=== PATIENT | female | born 2000 | race Caucasian/White ===

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

== ENCOUNTER → 2021-07-20 | Outpatient (CLI) | payer BC, MEDICAID, OTHER ==
[~2021-07-20] MED LIST: AMOX-358 PO; MEDR150D8 IM
== END ==
LOC: LABNPT 15:48
PROVIDERS: ATTEND Nurse Practitioner Women's Health
DX: Z34.02 Encounter for supervision of normal first pregnancy, second trimester (principal); Z3A.00 Weeks of gestation of pregnancy not specified
CPT/HCPCS: 82105

== ENCOUNTER → 2021-08-10 | Outpatient (CLI) | payer BC ==
--- NOTE | 2021-08-10 13:06 | Diagnostic Imaging Report ---
INDICATION: Supervision during normal . CORRELATION: None FINDINGS: Single viable intrauterine currently in a cephalic presentation. Amount of amniotic fluid is normal. Placenta anterior and without evidence for previa. Visualized anatomical structures including the kidneys, bladder, stomach, intracranial structures, four-chamber heart, three-vessel cord and insertion site, spine and extremities appearing unremarkable. Maternal adnexa not visualized. Cervical length 4.6 cm. Biometrical measurements are as follows: Biparietal 4.85 cm, age 20 weeks 5 days. Head circumference 18.59 cm, age 21 weeks 0 days. Abdominal circumference 14.90 cm, age 20 weeks 2 days. Femur length 3.72 cm, age 21 weeks 6 days. Sonographic estimate age: 21 weeks 0 days. Sonographic estimated date of delivery: 12/21/2021. Estimated Weight: 387 gm (+/- 57 gm). LMP percentile: 65%. heart rate: 152 beats per minute. number: 1 of 1. IMPRESSION: 1. Single viable intrauterine , currently in a Presentation presentation. 2. Sonographic estimated age 21 weeks 0 days, with an estimated date of delivery 12/21/2021. 3. No sonographic abnormalities demonstrated at this time. Dictated by: Dictated on workstation # [id number]
== END ==
LOC: RAD 12:00
PROVIDERS: ATTEND Nurse Practitioner Women's Health
DX: Z34.02 Encounter for supervision of normal first pregnancy, second trimester (principal); Z3A.21 21 weeks gestation of pregnancy
CPT/HCPCS: 76805

== ENCOUNTER 2021-12-25 18:51 | Inpatient (IN) | payer BC ==
[~2021-12-25] VITALS: Ht 162.6 cm; Wt 81.0 kg
[2021-12-25] MEDS ORDERED: NS IV 1000 ML 1,000 ML IV SCH (19:45)
[2021-12-25] MEDS ORDERED: MINERAL OIL 30 ML UDC TOP PRN (19:45)
[2021-12-25] MEDS ORDERED: TERBUTALINE INJ 1 MG/ML (BRETHINE) AMP SC PRN (19:45)
[2021-12-25] MEDS: D5 LR IV SOLUTION 1,000 ML IV SCH (20:00)
[2021-12-25 20:12] VITALS: BP 133/79
[2021-12-25 20:30] LABS: BASOPHILS % (AUTO) 0 % (0-10); EOSINOPHILS # (AUTO) 0.5 10^3/uL (0.0-0.3); EOSINOPHILS % (AUTO) 5 % (0-10); HEMATOCRIT 28 % (35-52); HEMOGLOBIN 9.7 g/dL (11.5-16.0); LYMPHOCYTES # (AUTO) 1.8 10^3/uL (1.0-4.0); LYMPHOCYTES % (AUTO) 19 % (12-44); MEAN CORPUSCULAR HEMOGLOBIN 29 pg (25-34); MEAN CORPUSCULAR HGB CONC 35 g/dL (32-36); MEAN CORPUSCULAR VOLUME 84 fL (80-99); MEAN PLATELET VOLUME 11.6 fL (9.0-12.2); MONOCYTES # (AUTO) 0.6 10^3/uL (0.0-1.0); MONOCYTES % (AUTO) 6 % (0-12); NEUTROPHILS # (AUTO) 6.4 10^3/uL (1.8-7.8); NEUTROPHILS % (AUTO) 68 % (42-75); PLATELET COUNT 175 10^3/uL (130-400); WHITE BLOOD COUNT 9.4 10^3/uL (4.3-11.0)
[2021-12-25 22:10] VITALS: BP 131/79
[2021-12-25 22:40] VITALS: BP 127/72
[2021-12-25 23:10] VITALS: BP 127/76
[2021-12-25 23:40] VITALS: BP 122/69
[2021-12-26] VITALS (65 sets, daily range): BP systolic 111–140; BP diastolic 63–92
[2021-12-26] MEDS ORDERED: AMPICILLIN FOR IV USE 2,000 MG in NS (IVPB) 50 ML IV ONE ×2
[2021-12-26] MEDS: CATHETER FLUSH 10 ML SYR IV SCH ×2 (03:46→05:57)
[2021-12-26] MEDS: AMPICILLIN FOR IV USE 1,000 MG in NS (IVPB) 50 ML IV SCH ×2 (04:00→08:20)
[2021-12-26] MEDS: D5 LR IV SOLUTION 1,000 ML IV SCH ×2 (04:00→11:08)
--- NOTE | 2021-12-26 07:25 | History & Physical-OB ---
OB - Chief Complaint & HPI Date/Time Date of Admission: Date of Admission: Dec 25, 2021 at 18:51 Date seen by a Provider: Dec 26, 2021 Time Seen by a Provider: 07:15 Chief Complaint/History OB-Reason for Admission/Chief: Induction of Labor Hx : 1 Hx Para: 0 Expected Date of Delivery: Dec 24, 2021 Gestational Age in Weeks: 40 Gestational Age in Days: 2 Indication for induction: post dates Admission Nurse Assessment Rev: Yes History of Labs A pos Antibody neg RI RPR NR HBsAg NR HIV NR GC neg GBS pos Allergies and Home Medications Allergies Coded Allergies: No Known Drug Allergies (Unverified , 12/09/18) Patient Home Medication List Home Medication List Reviewed: Yes Amoxicillin/Potassium Clav (Augmentin 875-125 Tablet) 1 Each Tablet, 1 TAB PO Q12H, (Reported) Entered as Reported by: GAMALIEL MOTA on 12/09/18 0956 Medroxyprogesterone Acetate (Depo-Provera) 150 Mg/1 Ml Syringe, 150 MG IM EVERY 3 MONTHS, (Reported) Entered as Reported by: GAMALIEL MOTA on 12/09/18 0955 OB - History Hx of Present Care: Yes Ultrasounds: Normal mid trimester US Obstetrical Complications: None Medical Complications: None Patient Past Medical History na Immunizations Influenza Vaccine Up-to-Date: No; Not Current Hepatitis B: Yes OB - Admission Exam Physical Exam Vitals: Vital Signs 12/26/21 12/26/21 04:00 06:40 Temp 36.9 Pulse 71 Resp 18 B/P (MAP) 125/76 (92) O2 Delivery Room Air HEENT: NCAT Heart: Rhythm Normal Lungs: Clear Abdomen: Gravid Extremities: Normal Reflexes: Normal Cervical Dilatation: 1cm Effacement: 75% Station: -1 Membranes: Intact Heart Rate: 130's Accelerations: Accelerations Present Decelerations: No Decelerations Short Term Variability: Present Wrapper Operator Variability: Average (6-25) Contractions on Admission: 6-10 Minutes Apart Intensity: Mild Labs Laboratory Tests Test 12/25/21 19:50 Range/Units White Blood Count 9.4 4.3-11.0 10^3/uL Red Blood Count 3.33 L 3.80-5.11 10^6/uL Hemoglobin 9.7 L 11.5-16.0 g/dL Hematocrit 28 L 35-52 % Mean Corpuscular Volume 84 80-99 fL Mean Corpuscular Hemoglobin 29 25-34 pg Mean Corpuscular Hemoglobin Concent 35 32-36 g/dL Red Cell Distribution Width 13.1 10.0-14.5 % Platelet Count 175 130-400 10^3/uL Mean Platelet Volume 11.6 9.0-12.2 fL Immature Granulocyte % (Auto) 1 % Neutrophils (%) (Auto) 68 42-75 % Lymphocytes (%) (Auto) 19 12-44 % Monocytes (%) (Auto) 6 0-12 % Eosinophils (%) (Auto) 5 0-10 % Basophils (%) (Auto) 0 0-10 % Neutrophils # (Auto) 6.4 1.8-7.8 10^3/uL Lymphocytes # (Auto) 1.8 1.0-4.0 10^3/uL Monocytes # (Auto) 0.6 0.0-1.0 10^3/uL Eosinophils # (Auto) 0.5 H 0.0-0.3 10^3/uL Basophils # (Auto) 0.0 0.0-0.1 10^3/uL Immature Granulocyte # (Auto) 0.1 0.0-0.1 10^3/uL OB - Assessment/Plan/Diagnosis Assessment Assessment: induction of labor Admission Dx 21 y o @ 40.2 Post dates GBS pos Admission Status: Inpatient Order (span 2 midnights) Reason for Inpatient Admission: IOL at 40 weeks Plan Plan: Induction Induction Method: per Misoprostol Protocol Other Plan SROM occurred this AM. Pitocin augmentation to be started. SIVA CORTEZ DO Dec 26, 2021 07:25
[2021-12-26] MEDS ORDERED: ONDANSETRON 4 MG/2 ML (SDV) Z0FRAN ONE (07:26)
[2021-12-26] MEDS ORDERED: ONDANSETRON 4 MG/2 ML (SDV) Z0FRAN IVP PRN ×2 (07:30→12:30)
[2021-12-26] MEDS ORDERED: OXYTOCIN PRE-MIX DRIP 500 ML IV SCH ×2 (08:00→12:30)
[2021-12-26] MEDS ORDERED: fentaNYL 2 mcg/ml BUPIVA 0.125 100 ML ONE (08:34)
[2021-12-26] MEDS ORDERED: LACTATED RINGERS 1,000 ML IV ONE ×3 (08:34→14:30)
[2021-12-26] MEDS ORDERED: fentaNYL INJ 100 MCG/2 ML AMP ONE (08:51)
[2021-12-26] MEDS ORDERED: BUPIVACAINE 0.25% 30 ML (SENSORCAINE) VIAL ONE (08:51)
[2021-12-26] MEDS ORDERED: METOCLOPRAMIDE INJ 10 MG/2 ML (REGLAN) ONE (12:09)
[2021-12-26] MEDS ORDERED: CITRIC ACID/SOB CIT (BICITRA) 30 ML UDC ONE (12:09)
[2021-12-26] MEDS ORDERED: ceFAZolin INJECTION 2,000 MG ONE (12:09)
[2021-12-26] MEDS ORDERED: FAMOTIDINE 20MG/2ML IV (PEPCID) ONE (12:10)
[2021-12-26] MEDS ORDERED: NS (IVPB) 0 ML ONE (12:12)
--- NOTE | 2021-12-26 12:17 | Progress Note ---
Standard Progress Note Progress Notes/Assess & Plan Date Seen by a Provider: Dec 26, 2021 Time Seen by a Provider: 12:10 Progress/Assessment & Plan After epidural was placed, exam better tolerated. palpated in breech presentation. Discussed with patient immediate need to proceed to . Risk involved in vaginal breech vs. reviewed. SIVA CORTEZ DO Dec 26, 2021 12:17
--- NOTE | 2021-12-26 12:20 | Discharge Inst-Women's Service ---
Discharge Inst-Women's Serv Depart Medication/Instructions New, Converted or Re-Newed RX: Transmitted to Pharmacy Problems Reviewed?: Yes Consults/Follow Up Additional Follow Up: Yes Orders/Referrals Dr. Bo in 7-10 days and in 6 weeks Activity Activity: Activity as Tolerated Driving Instructions: No Driving for 1 Week NO SMOKING: NO SMOKING Nothing Inside Vagina: No Douching, No Rawlins, No Tampons Diet Discharge Diet: No Restrictions Symptoms to Report to : Bleeding Excessive, Pain Increased, Fever Over 101 Degrees F, Vaginal Bleeding Increase, Questions/Concerns For Any Problems or Questions: Contact Your Physician Skin/Wound Care Infection Signs and Symptoms: Increased Redness, Foul Odor of Wound, Increased Drainage, Skin Itchy or Has a Rash, Increased Swelling, Temperature Above 101 F Operative Area Clean and Dry: Keep Incision Clean/Dry Stitches/Magaly/Dermabond: Dermabond, Care of Stitches Bathing Instructions: SIVA Gonzalez DO Dec 26, 2021 12:20
[2021-12-26] MEDS ORDERED: DOCU100C37 PO (12:22)
[2021-12-26] MEDS ORDERED: IBUP-844 PO (12:22)
[2021-12-26] MEDS ORDERED: ACHD5005 PO (12:22)
[2021-12-26] MEDS ORDERED: BUPIVACAINE 0.5% 30 ML (SENSORCAINE) VIAL ONE (12:29)
[2021-12-26] MEDS ORDERED: OXYTOCIN PRE-MIX DRIP 1,000 ML IV ONE (12:29)
[2021-12-26] MEDS ORDERED: NALOXONE 0.4 MG/ML 1 ML (NARCAN) VIAL IV PRN ×2 (12:30→14:30)
[2021-12-26] MEDS ORDERED: MEASLES,MUMPS,RUBELLA 1 EA INJ SC SCH (12:30)
[2021-12-26] MEDS ORDERED: TETANUS,DIPTH,PERTUSS P/F (BOOSTRIX) 0.5 ML VIAL IM SCH (12:30)
[2021-12-26] MEDS: KETOROLAC 30 MG/ML VIAL IV SCH ×2 (13:00→18:32)
[2021-12-26] MEDS ORDERED: KETOROLAC 30 MG/ML VIAL ONE (13:03)
[2021-12-26] MEDS ORDERED: CATHETER FLUSH 10 ML SYR IV SCH (14:00)
[2021-12-26] MEDS ORDERED: CITRIC ACID/SOB CIT (BICITRA) 30 ML UDC PO ONE (14:15)
[2021-12-26] MEDS ORDERED: FAMOTIDINE 20MG/2ML IV (PEPCID) IV ONE (14:15)
[2021-12-26] MEDS ORDERED: ceFAZolin INJECTION 2,000 MG in NS (IVPB) 50 ML IV ONE (14:15)
[2021-12-26] MEDS ORDERED: METOCLOPRAMIDE INJ 10 MG/2 ML (REGLAN) IV ONE (14:15)
[2021-12-26] MEDS ORDERED: LACTATED RINGERS 1,000 ML IV PRN (14:15)
[2021-12-26] MEDS ORDERED: CATHETER FLUSH 10 ML SYR IV PRN (14:30)
[2021-12-26] MEDS ORDERED: ONDANSETRON 4 MG/2 ML (SDV) Z0FRAN IV PRN (14:30)
[2021-12-26] MEDS ORDERED: fentaNYL 2 mcg/ml BUPIVA 0.125 100 ML IV SCH (14:30)
[2021-12-26] MEDS ORDERED: diphenhydrAMINE 50 MG/ML INJ (BENADRYL) IV PRN (14:30)
[2021-12-26] MEDS: METOCLOPRAMIDE 10 MG (REGLAN) TAB PO SCH (18:32)
[2021-12-26] MEDS: DOCUSATE SODIUM 100 MG (COLACE) CAP PO SCH (20:37)
--- NOTE | 2021-12-26 21:57 | OPERATIVE REPORT ---
DATE OF SERVICE: PREOPERATIVE DIAGNOSES: 1. A 21-year-old G1, P0 at 40 weeks and 2 days gestation. 2. Po breech presentation. POSTOPERATIVE DIAGNOSES: 1. A 21-year-old G1, P0 at 40 weeks and 2 days gestation. 2. Po breech presentation. PROCEDURE: Primary low transverse section. SURGEON: Thony Bo DO ANESTHESIA: Epidural, which had been bolused. ESTIMATED BLOOD LOSS: 500 mL. URINE OUTPUT: 900 mL clear at the end of procedure. FLUIDS: 1000 mL lactated Ringer's solution. FINDINGS: A live female infant weighing 7 pounds 1 ounce with Apgars of 8 and 8. Grossly normal appearing uterus, bilateral fallopian tubes and ovaries. SPECIMEN SENT: Placenta. INDICATIONS FOR PROCEDURE: This 21-year-old female who is brought in for induction of labor postdates last week. Examination in the office was found to be in the vertex presentation; however, this morning after receiving a cervical ripening overnight she was found to be in the po breech presentation on examination, buttocks was palpated. I discussed with the patient proceeding with primary . The patient had already had rupture of membranes with meconium-stained fluid. Risks of the procedure were discussed with the patient in detail and after all of her questions were answered, consent was obtained in the preoperative area and the patient was taken to the operating room. OPERATIVE REPORT IN DETAIL: Once in the operating room, epidural analgesia was bolused and found to be adequate. She was placed in the supine position with leftward tilt, prepped and draped in normal sterile fashion. Timeout was performed and anesthesia was tested. I then make a Pfannenstiel skin incision with knife and carried down to underlying fascia using Bovie cautery. The fascial incision extended laterally using Bovie cautery. Superior aspect of fascial incision was then grasped with Bryan clamps, tented up and dissected off the underlying rectus muscles. The inferior aspect of fascial incision was then grasped with Bryan clamps, tented up and dissected off the underlying rectus muscles. The rectus muscle dissected down the midline using sharp dissection, which exposed the peritoneum, which I entered bluntly and extended using blunt traction. Montez ring retractor was placed in the peritoneal incision, which offers excellent lateral sidewall retraction. I identified the lower uterine segment, which was found to be thinned out and make a low transverse incision to the vesicouterine peritoneum and bluntly dissected this off the lower uterine segment, creating a bladder flap. I then proceeded with my myotomy until membranes are visualized, at which point I extended the uterine incision laterally and superiorly using bandage scissors. The infant was found in the breech presentation. It was a po breech. The buttocks were delivered up through the incision up to the upper torso where the legs are completely delivered. The fetus was then rotated to be facing downward and the arms were delivered by sweeping them across the chest and the 's body was elevated and the 's head was delivered with flexion through the incision. At this point, nares and oropharynx were bulb suctioned. Cord was doubly clamped and cut, and the infant was handed off to waiting nurses in attendance. Cord blood was collected, 3-vessel cord with intact placenta was delivered spontaneously, thereafter IV Pitocin was initiated to facilitate uterine contraction. Uterine fundus became firm with uterine massage. The uterus was then exteriorized and cleared of all endometrial clots and debris. I then proceeded with closing the uterine incision using 0 Vicryl suture in a running locked fashion. There is an extension of the uterine incision down into the cervix, which was closed using 0 Vicryl suture in running locked fashion. Second layer of imbricating 0 Monocryl is placed in an imbricating fashion and excellent hemostasis was noted after doing this. I then placed the uterus back within the pelvis and copiously irrigated the pelvis using normal saline. Once again, there was no active bleeding noted from any of my dissection planes. I placed Interceed antiadhesive over my low transverse incision. I removed the Montez ring retractor and then proceeded with closing the peritoneum using 3-0 Vicryl suture in a running fashion. Rectus muscles were reapproximated using 3-0 Vicryl suture in interrupted fashion. The fascia was reapproximated using 0 Vicryl suture in a running fashion. The skin reapproximated using 4-0 Monocryl in a running subcuticular. Dermabond was applied to incision and sterile dressing with adhesive white tape. The patient tolerated the procedure well and sent to recovery area in stable condition. Lap and sponge counts were correct at the end of the procedure. Instrument counts correct as well. Two grams of Ancef were given preoperatively for infection prophylaxis. Job ID: [id number] DocumentID: [id number] Dictated Date: 12/26/2021 13:21:27 Director Of Coding Date: 12/26/2021 21:56:45 Dictated By: DO AUDREY EMMANUEL
[2021-12-27] MEDS: KETOROLAC 30 MG/ML VIAL IV SCH ×2 (00:23→06:00)
[2021-12-27] MEDS: METOCLOPRAMIDE 10 MG (REGLAN) TAB PO SCH ×4 (00:23→18:02)
[2021-12-27 00:42] VITALS: BP 118/72
[2021-12-27 05:39] LABS: BASOPHILS % (AUTO) 0 % (0-10); EOSINOPHILS # (AUTO) 0.3 10^3/uL (0.0-0.3); EOSINOPHILS % (AUTO) 3 % (0-10); HEMATOCRIT 24 % (35-52); HEMOGLOBIN 7.9 g/dL (11.5-16.0); LYMPHOCYTES # (AUTO) 1.8 10^3/uL (1.0-4.0); LYMPHOCYTES % (AUTO) 16 % (12-44); MEAN CORPUSCULAR HEMOGLOBIN 29 pg (25-34); MEAN CORPUSCULAR HGB CONC 34 g/dL (32-36); MEAN CORPUSCULAR VOLUME 85 fL (80-99); MEAN PLATELET VOLUME 11.2 fL (9.0-12.2); MONOCYTES # (AUTO) 0.8 10^3/uL (0.0-1.0); MONOCYTES % (AUTO) 7 % (0-12); NEUTROPHILS # (AUTO) 8.4 10^3/uL (1.8-7.8); NEUTROPHILS % (AUTO) 74 % (42-75); PLATELET COUNT 157 10^3/uL (130-400); WHITE BLOOD COUNT 11.4 10^3/uL (4.3-11.0)
[2021-12-27 05:56] VITALS: BP 123/66
--- NOTE | 2021-12-27 09:01 | Anesthesia-Regional Post-Op ---
Regional Patient Condition Mental Status: Alert, Oriented x3 Circulation: Same as Pre-Op Headache: Absent Sensation: Full Recovery Motor Block: Absent Post Op Complications Complications None Follow Up Care/Instructions Patient Instructions None needed. Anesthesia/Patient Condition Patient is doing well, no complaints, stable vital signs, no apparent adverse anesthesia problems. No complications reported per nursing. WILBERT CHEN CRNA Dec 27, 2021 09:01
[2021-12-27 09:30] VITALS: BP 127/71
[2021-12-27] MEDS: DOCUSATE SODIUM 100 MG (COLACE) CAP PO SCH ×2 (09:38→20:05)
[2021-12-27] MEDS: FERROUS SULF 325 MG (IRON) TAB PO SCH ×2 (09:39→19:14)
[2021-12-27] MEDS: HYDROcodone/APAP 5 MG/325 MG (LORTAB) TAB PO PRN ×3 (09:39→20:05)
--- NOTE | 2021-12-27 09:47 | Postpartum Progress Note ---
Note Note Day # 1 Subjective: Patient is without complaints. Ambulating, voiding. Tolerating a regular diet without nausea or vomiting. Normal lochia. Pain is well controlled with oral pain medications. Physical Exam: General - Alert and oriented, no apparent distress Abdomen - Soft, appropriately tender to palpation, non-distended, fundus firm at umbilicus; incision c/d/i Extremities - no edema, negative Kristine's bilaterally Assessment: Post- day # 1, status post PLTCS d/t Gregorio breech presentation Recovering well, hemodynamically stable Acute blood loss anemia Plan: Routine care. Encourage breast feeding. Encourage ambulation. Ferrous sulfate supplementation. Plan for discharge tomorrow Vitals - Labs Vital Signs - I&O Vital Signs Date Time Temp Pulse Resp B/P (MAP) Pulse Ox O2 Delivery O2 Flow Rate FiO2 12/27/21 09:30 36.4 85 16 127/71 (89) 97 Room Air 12/27/21 05:56 36.9 91 16 123/66 (85) 97 Room Air 12/27/21 00:42 36.6 93 18 118/72 (87) 98 Room Air 12/26/21 20:34 36.9 102 18 120/72 (88) 98 Room Air 12/26/21 16:21 36.7 95 18 118/67 (84) 100 Room Air 12/26/21 14:09 Room Air 12/26/21 14:07 36.0 16 132/89 (103) 100 Room Air 12/26/21 13:55 Room Air 12/26/21 13:52 36.0 16 116/86 (96) 100 Room Air 12/26/21 13:38 Room Air 12/26/21 13:36 35.8 16 113/90 (98) 100 Room Air 12/26/21 13:26 Room Air 12/26/21 13:25 36.5 16 115/71 (86) 100 Room Air 12/26/21 12:22 36.3 102 18 123/64 (83) 100 Room Air 12/26/21 12:08 94 18 124/75 (91) 100 Room Air 12/26/21 11:52 75 18 111/66 (81) 100 Non Rebreather 15.00 12/26/21 11:36 74 18 118/71 (87) 100 Non Rebreather 15.00 12/26/21 11:21 103 18 114/69 (84) 100 Non Rebreather 15.00 12/26/21 11:06 36.2 80 18 120/74 (89) 100 Non Rebreather 15.00 12/26/21 11:03 94 18 115/73 (87) 100 Non Rebreather 15.00 12/26/21 11:00 75 18 125/74 (91) 100 Non Rebreather 15.00 12/26/21 10:57 78 18 123/69 (87) 100 Non Rebreather 15.00 12/26/21 10:54 75 18 125/67 (86) Non Rebreather 15.00 12/26/21 10:51 79 18 123/78 (93) 100 Non Rebreather 15.00 12/26/21 10:48 75 18 125/74 (91) 100 Non Rebreather 15.00 12/26/21 10:45 78 18 126/73 (90) 100 Non Rebreather 15.00 12/26/21 10:42 79 18 119/68 (85) 100 Non Rebreather 15.00 12/26/21 10:38 88 18 116/67 (83) 100 Non Rebreather 15.00 12/26/21 10:33 83 18 118/65 (82) 97 Room Air 12/26/21 10:30 79 18 118/65 (82) 97 Room Air 12/26/21 10:26 83 18 124/71 (88) 98 Room Air 12/26/21 10:23 81 18 123/75 (91) 98 Room Air 12/26/21 10:20 83 18 129/78 (95) 98 Room Air 12/26/21 10:17 36.4 74 18 133/92 (106) 99 Room Air 12/26/21 10:12 83 18 125/80 (95) Room Air 12/26/21 10:10 89 18 129/85 (100) 99 Room Air 12/26/21 10:06 80 18 132/81 (98) 100 Room Air 12/26/21 10:03 85 18 131/78 (95) Room Air 12/26/21 10:00 76 18 130/72 (91) 99 Room Air 12/26/21 09:56 80 18 129/66 (87) Room Air 12/26/21 09:53 91 18 135/69 (91) 99 Room Air 12/26/21 09:50 90 18 135/71 (92) 100 Room Air 12/26/21 09:47 81 18 137/74 (95) Room Air I & O 12/27/21 07:00 Intake Total 3250 ml Output Total 3000 ml Balance 250 ml Labs Laboratory Tests 12/27/21 05:16: White Blood Count 11.4H, Red Blood Count 2.76L, Hemoglobin 7.9L, Hematocrit 24L, Mean Corpuscular Volume 85, Mean Corpuscular Hemoglobin 29, Mean Corpuscular Hemoglobin Concent 34, Red Cell Distribution Width 13.0, Platelet Count 157, Mean Platelet Volume 11.2, Immature Granulocyte % (Auto) 1, Neutrophils (%) (Au to) 74, Lymphocytes (%) (Auto) 16, Monocytes (%) (Auto) 7, Eosinophils (%) (Auto) 3, Basophils (%) (Auto) 0, Neutrophils # (Auto) 8.4H, Lymphocytes # (Auto) 1.8, Monocytes # (Auto) 0.8, Eosinophils # (Auto) 0.3, Basophils # (Auto) 0.0, Immature Granulocyte # (Auto) 0.1 ANISH GRANT APRN Dec 27, 2021 09:47
[2021-12-27] MEDS: IBUPROFEN 600 MG (MOTRIN) TAB PO SCH ×2 (12:27→18:03)
[2021-12-27 13:15] VITALS: BP 128/69
[2021-12-27 17:00] VITALS: BP 120/81
[2021-12-27 20:00] VITALS: BP 119/69
[2021-12-28] VITALS: BP 108/62
[2021-12-28] MEDS: METOCLOPRAMIDE 10 MG (REGLAN) TAB PO SCH ×3 (00:06→12:10)
[2021-12-28] MEDS: IBUPROFEN 600 MG (MOTRIN) TAB PO SCH ×3 (00:06→12:10)
[2021-12-28 04:00] VITALS: BP 116/73
--- NOTE | 2021-12-28 07:06 | Postpartum Progress Note ---
Note Note Day # 2 Subjective: Patient is without complaints. Ambulating, voiding. Tolerating a regular diet without nausea or vomiting. Normal lochia. Pain is well controlled with oral pain medications. Objective: Physical Exam: General - Alert and oriented, no apparent distress Abdomen - Soft, appropriately tender to palpation, non-distended, fundus firm at umbilicus Extremities - no edema, negative Kristine's bilaterally Incision- c/d/i Assessment: POD 2 PLTCS Acute blood loss anemia superimposed on anemia of Plan: Routine care. Encourage breast feeding. Encourage ambulation. Ferrous sulfate supplementation. Plan for discharge today Vitals - Labs Vital Signs - I&O Vital Signs Date Time Temp Pulse Resp B/P (MAP) Pulse Ox O2 Delivery O2 Flow Rate FiO2 12/28/21 04:00 36.9 86 16 116/73 (87) 99 Room Air 12/28/21 00:00 36.3 88 16 108/62 (77) 98 Room Air 12/27/21 20:00 36.7 85 16 119/69 (86) 100 Room Air 12/27/21 17:00 37.1 87 18 120/81 (94) 100 Room Air 12/27/21 13:15 36.3 88 18 128/69 (88) 99 Room Air 12/27/21 09:30 36.4 85 16 127/71 (89) 97 Room Air SIVA CORTEZ DO Dec 28, 2021 07:05
[2021-12-28] MEDS: FERROUS SULF 325 MG (IRON) TAB PO SCH ×3 (08:03→12:10)
[2021-12-28] MEDS: HYDROcodone/APAP 5 MG/325 MG (LORTAB) TAB PO PRN (09:16)
[2021-12-28] MEDS: DOCUSATE SODIUM 100 MG (COLACE) CAP PO SCH (09:16)
== END 2021-12-28 13:38 | disposition home or self-care (01) | DRG 787 ==
LOC: LDRP 18:51
PROVIDERS: ADMIT Obstetrics & Gynecology; ATTEND Obstetrics & Gynecology
PROC: 3E0DXGC Introduction of Other Therapeutic Substance into Mouth and Pharynx, External Approach (ICD-10-PCS; 2021-12-25)
PROC: 10D00Z1 Extraction of Products of Conception, Low, Open Approach (ICD-10-PCS; principal; 2021-12-26 12:34)
DX: O48.0 Post-term pregnancy (principal); D62 Acute posthemorrhagic anemia; O64.1XX0 Obstructed labor due to breech presentation, not applicable or unspecified; Z37.0 Single live birth; O77.0 Labor and delivery complicated by meconium in amniotic fluid; O99.013 Anemia complicating pregnancy, third trimester; D64.9 Anemia, unspecified; O90.81 Anemia of the puerperium; O99.824 Streptococcus B carrier state complicating childbirth; Z3A.40 40 weeks gestation of pregnancy
CPT/HCPCS: 36415; 85025; 86850; 86900; 86901; 94664